=== PATIENT | female | born 2000 | race Caucasian/White ===

== ENCOUNTER 2021-01-13 20:33 | Emergency (ER) | payer OTHER ==
[~2021-01-13] VITALS: Ht 160 cm; Wt 98.0 kg
[2021-01-13 20:33] VITALS: BP 123/66
[2021-01-13] MEDS ORDERED: ALBUTEROL SULFATE 8GM INHALER. ONE (20:39)
--- NOTE | 2021-01-13 21:01 | PHYS DOC ---
General Adult EDM: Chief Complaint: Med refill HPI: HPI: 20-year-old female presents for refill on her albuterol inhaler. The patient went over her inhaler with her car earlier today. She uses her albuterol daily and did not have a spare one. It Thursday and she did not know how to get a replacement inhaler. She is not feeling short of breath at this time. She does not believe she is having an exacerbation. She does does not want to have one. Denies fever or chills. She has no other concerns at this time. Review of Systems: Review of Systems: Constitutional: Denies fever or chills Eyes: Denies change in visual acuity HENT: Denies nasal congestion or sore throat Respiratory: Denies cough or shortness of breath Cardiovascular: Denies chest pain or edema GI: Denies abdominal pain, nausea, vomiting, bloody stools or diarrhea : Denies dysuria Musculoskeletal: Denies back pain or joint pain Integument: Denies rash Neurologic: Denies headache, focal weakness or sensory changes Endocrine: Denies polyuria or polydipsia Lymphatic: Denies swollen glands Psychiatric: Denies depression or anxiety Current Medications: Current Meds: Current Medications Medications (Trade) Dose Ordered Sig/Re Start Time Stop Time Status Last Admin Dose Admin Albuterol Sulfate (Ventolin Hfa Inhaler) 60 puff STK-MED ONCE 01/13/21 20:39 01/13/21 20:39 DC Physical Exam: PE: Constitutional: Well developed, well nourished, no acute distress, non-toxic appearance. [] HENT: Normocephalic, atraumatic, bilateral external ears normal, oropharynx moist, no oral exudates, nose normal. [] Eyes: PERRLA, EOMI, conjunctiva normal, no discharge. [] Neck: Normal range of motion, no tenderness, supple, no stridor. [] Cardiovascular:Heart rate regular rhythm, no murmur [] Lungs & Thorax: Bilateral breath sounds clear to auscultation [] Abdomen: Bowel sounds normal, soft, no tenderness, no masses, no pulsatile masses. [] Skin: Warm, dry, no erythema, no rash. [] Back: No tenderness, no CVA tenderness. [] Extremities: No tenderness, no cyanosis, no clubbing, ROM intact, no edema. [] Neurologic: Alert and oriented X 3, normal motor function, normal sensory function, no focal deficits noted. [] Psychologic: Affect normal, judgement normal, mood anxious. [] EKG: EKG: [] Radiology/Procedures: Radiology/Procedures: [] Heart Score: C/O Chest Pain: N/A Risk Factors: Risk Factors: DM, Current or recent (<one month) smoker, HTN, HLP, family history of CAD, obesity. Risk Scores: Score 0 - 3: 2.5% MACE over next 6 weeks - Discharge Home Score 4 - 6: 20.3% MACE over next 6 weeks - Admit for Clinical Observation Score 7 - 10: 72.7% MACE over next 6 weeks - Early Invasive Strategies Course & Med Decision Making: Course & Med Decision Making Pertinent Labs and Imaging studies reviewed. (See chart for details) [] Dragon Disclaimer: Dragon Disclaimer: This electronic medical record was generated, in whole or in part, using a voice recognition dictation system. Departure Departure: Impression: Primary Impression: Medication refill Disposition: HOME / SELF CARE / HOMELESS Condition: STABLE Referrals: PCP,ADITI (PCP) POOL GALLARDO DO January 13, 2021 21:01
== END 2021-01-13 21:05 | disposition home or self-care (01) ==
LOC: ER 20:33
DX: J45.909 Unspecified asthma, uncomplicated (principal); Z76.0 Encounter for issue of repeat prescription
CPT/HCPCS: 94640; 99283; 94664

== ENCOUNTER 2021-03-31 23:31 | Emergency (ER) | payer OTHER ==
[~2021-03-31] VITALS: Ht 160 cm; Wt 98.0 kg
[2021-03-31 23:45] VITALS: BP 124/68
[2021-04-01] MEDS ORDERED: diazePAM 5 MG TABLET. PO ONE (00:15)
[2021-04-01] MEDS ORDERED: KETOROLAC 60 MG/2 ML VIAL. IM ONE (00:15)
[2021-04-01] MEDS ORDERED: oxyCODONE/APAP 5/325 1 TAB TABLET PO ONE (00:15)
[2021-04-01] MEDS ORDERED: DIAZ5TAB4 PO (00:23)
[2021-04-01] MEDS ORDERED: HYDR-2155 PO (00:23)
--- NOTE | 2021-04-01 00:24 | PHYS DOC ---
Past History Past Medical History: Asthma, Other Additional Past Medical Histor: pcos Past Surgical History: No Surgical History Alcohol Use: None Adult General Chief Complaint Chief Complaint: BACK PAIN OR INJURY HPI HPI Patient is an otherwise healthy 20-year-old female presents with low back pain that started today when she was playing with her child and throwing them in the air. States that she had a twinge in her low back across the bottom and up into the muscles along her spine. States this was earlier this evening. States she tried some Tylenol initially which did not provide much relief. Denies any numbness/weakness/tingling. Denies any trouble sitting, standing, walking. Denies any urinary retention or incontinence. Denies any incontinence of stool. States that the pain is 7 out of 10, dull and achy in nature. Denies any recent traumas, travels, fevers, chest pain, shortness of breath, abdominal pain, nausea, vomiting. Review of Systems Review of Systems Review of systems otherwise unremarkable except noted in HPI Allergies Allergies Allergies Coded Allergies Type Severity Reaction Last Updated Verified oseltamivir Allergy Intermediate 01/13/21 Yes Physical Exam Physical Exam Constitutional: Well developed, well nourished, no acute distress, non-toxic appearance. [] Neck: Normal range of motion, Cardiovascular:Heart rate regular rhythm, no murmur [] Lungs & Thorax: Bilateral breath sounds clear to auscultation [] Abdomen: soft, no tenderness, no masses, no pulsatile masses. [] Skin: Warm, dry, no erythema, no rash. [] Back: Tenderness around lumbar paraspinal muscles, no obvious bruising or deformities, range of motion intact, neurovascular exam intact Extremities: No tenderness, no cyanosis, no clubbing, ROM intact, no edema. [] Neurologic: Alert and oriented X 3, normal motor function, normal sensory function, able to sit, stand and walk without issue, no focal deficits noted. [] Psychologic: Affect normal, judgement normal, mood normal. [] EKG EKG [] Radiology/Procedures Radiology/Procedures [] Heart Score C/O Chest Pain: No Risk Factors: Risk Factors: DM, Current or recent (<one month) smoker, HTN, HLP, family history of CAD, obesity. Risk Scores: Risk Factors: DM, Current or recent (<one month) smoker, HTN, HLP, family history of CAD, obesity. Course & Med Decision Making Course & Med Decision Making Patient is a 20-year-old female who presents with low back pain started earlier today after playing with her child Vital signs not concerning. Physical exam noted above. Patient given oral pain medicine and oral muscle relaxer. Patient states she was on her period and did need a urinalysis . Discussed pain management at home. Given education on low back pain. Advised to follow-up with primary care physician in the morning to update on ED visit. For strict return precautions to the ED. Patient grateful, verbalized understanding and agreed with plan of discharge. [] Dragon Disclaimer Dragon Disclaimer This electronic medical record was generated, in whole or in part, using a voice recognition dictation system. Departure Departure: Disposition: HOME / SELF CARE / HOMELESS Condition: GOOD Referrals: PCP,UNKNOWN (PCP) DEREK SHABAZZ Patient Instructions: Back Pain, Adult Additional Instructions: Thank you for coming into the emergency department tonight and allowing us to take care of you. Please read all the attached information very carefully to go back over the things we discussed. You can begin to use a Tylenol, ibuprofen, Benadryl, ice/heat regimen as discussed. As discussed please do some movements and stretching daily and do not apply around too much as this is been shown to increase length of healing. Please only use your pain medicine and muscle relaxers as needed. Please call your primary care physician first thing in the morning to update on your ED visit and set up a follow-up. Please come back to the ED with new or concerning symptoms as discussed. Scripts Diazepam (DIAZEPAM) 5 Mg Tablet 5 MG PO BID for back spasm for 3 Days, #6 TAB Prov: JOSH WEST MD 04/01/21 Hydrocodone Bit/Acetaminophen (HYDROCODONE-APAP 5-325 ) 1 Each Tablet 1 TAB PO BID PRN for PAIN for 3 Days, #6 TAB 0 Refills Prov: JOSH WEST MD 04/01/21 JOSH WEST MD Apr 01, 2021 00:24
== END 2021-04-01 01:14 | disposition home or self-care (01) ==
LOC: ER 23:31
DX: M54.5 Low back pain (principal); J45.909 Unspecified asthma, uncomplicated; Z88.8 Allergy status to other drugs, medicaments and biological substances
CPT/HCPCS: 81025; 96372; 99283; J1885

== ENCOUNTER 2021-04-27 04:59 | Emergency (ER) | payer OTHER ==
[~2021-04-27] VITALS: Ht 160 cm; Wt 98.0 kg
[~2021-04-27 04:59] MED LIST: DIAZ5TAB4 PO; HYDR-2155 PO
[2021-04-27] MEDS ORDERED: IPRATRPIUM/ALBUTEROL 0.5/2.5MG 3 ML NEBU. ONE (05:04)
[2021-04-27 05:05] VITALS: BP 162/87
--- NOTE | 2021-04-27 05:08 | PHYS DOC ---
Past History Past Medical History: Asthma, Other Additional Past Medical Histor: pcos Past Surgical History: No Surgical History Alcohol Use: None Adult General Chief Complaint Chief Complaint: ASTHMA HPI HPI Patient is a 21-year-old female who past medical history for asthma who presents with wheezing and complaints of asthma exacerbation that started last night. States she has been using her albuterol inhaler with minimal relief. Denies any recent travels, traumas, fevers, sore throat, chest pain, abdominal pain, nausea, vomiting, dysuria, hematuria, diarrhea or blood in the stool. Denies any known ill contacts. Denies any other Covid/flu/cold symptoms. Review of Systems Review of Systems Review of systems otherwise unremarkable except noted in HPI Allergies Allergies Allergies Coded Allergies Type Severity Reaction Last Updated Verified oseltamivir Allergy Intermediate 01/13/21 Yes Physical Exam Physical Exam Constitutional: Well developed, well nourished, no acute distress, non-toxic appearance. [] HENT: Normocephalic, atraumatic, bilateral external ears normal, oropharynx moist, no oral exudates, nose normal. [] Eyes: conjunctiva normal, no discharge. [] Neck: Normal range of motion, no tenderness, supple, no stridor. [] Cardiovascular: Sinus tachycardia Lungs & Thorax: Bilateral end expiratory wheeze with no hypoxia or increased work of breathing Abdomen: soft, no tenderness, Skin: Warm, dry, no erythema, no rash. [] Neurologic: Alert and oriented X 3, no focal deficits noted. [] Psychologic: Affect normal, judgement normal, mood normal. [] EKG EKG [] Radiology/Procedures Radiology/Procedures [] Heart Score C/O Chest Pain: No Risk Factors: Risk Factors: DM, Current or recent (<one month) smoker, HTN, HLP, family history of CAD, obesity. Risk Scores: Risk Factors: DM, Current or recent (<one month) smoker, HTN, HLP, family history of CAD, obesity. Course & Med Decision Making Course & Med Decision Making Patient is a 21-year-old female who presents with asthma exacerbation Vital signs notable for tachycardia and hypertension, most likely secondary to multiple breathing treatments at home and a [facility] in route via EMS. Physical exam noted above. Placed on the monitor. Given breathing treatment. Given steroids. On reassessment patient was breathing significantly better, with wheeze resolved. Discussed all findings with patient. Advised on albuterol use and given education on asthma. Advised to call primary care physician first thing Thursday to set up follow-up. Gave return precautions to the ED. Patient grateful, verbalized understanding and agreed with plan of discharge. [] Dragon Disclaimer Dragon Disclaimer This electronic medical record was generated, in whole or in part, using a voice recognition dictation system. Departure Departure: Impression: Primary Impression: Asthma exacerbation Disposition: HOME / SELF CARE / HOMELESS Condition: GOOD Referrals: PCP,UNKNOWN (PCP) DEREK SHABAZZ Patient Instructions: Asthma Attacks, Prevention, Asthma, Acute Bronchospasm Additional Instructions: Thank you for coming into the emergency department tonight and allowing us to take care of you. Please read all the attached information above to go back over some things we discussed. Please continue to use your albuterol at home as needed and as prescribed. Please follow-up first thing Thursday morning with your primary care physician to update on your ED visit and set up a follow-up. Please come back to the ED with new or concerning symptoms as discussed. JOSH WEST MD Apr 27, 2021 05:08
[2021-04-27] MEDS ORDERED: DEXAMETHASONE 4 MG TABLET ONE (05:09)
[2021-04-27] MEDS ORDERED: IPRATRPIUM/ALBUTEROL 0.5/2.5MG 3 ML NEBU. NEB ONE (05:15)
[2021-04-27] MEDS ORDERED: DEXAMETHASONE 4 MG TABLET PO ONE (05:15)
== END 2021-04-27 05:21 | disposition home or self-care (01) ==
LOC: ER 04:59
DX: J45.901 Unspecified asthma with (acute) exacerbation (principal); I10 Essential (primary) hypertension
CPT/HCPCS: 94640; 99283; J8540